=== PATIENT | male | born 1995 | race African-American/Black ===

== ENCOUNTER 2022-04-23 09:59 | Emergency (ER) | payer OTHER ==
[~2022-04-23] VITALS: Ht 180.3 cm; Wt 81.8 kg
[2022-04-23 10:05] VITALS: BP 127/76
== END 2022-04-23 11:47 | disposition left against medical advice (07) ==
LOC: EMS 10:05
DX: Z53.21 Procedure and treatment not carried out due to patient leaving prior to being seen by health care provider (principal)